=== PATIENT | male | born 1940 | race Caucasian/White ===

== ENCOUNTER 2019-05-25 18:33 | Emergency (ER) | payer OTHER ==
[~2019-05-25] VITALS: Ht 180.3 cm; Wt 102.3 kg
[2019-05-25] MEDS ORDERED: SODIUM CHLORIDE 0.9% 1L BAG IV* STA (18:38)
[2019-05-25 18:43] VITALS: Ht 180.3 cm; Wt 102.3 kg
--- NOTE | 2019-05-25 18:54 | ERD ---
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 Patient states he urinates about 3 times a day, denies chest pain or shortness of breath, no rash, no recent travel or antibiotic use, no vomiting or diarrhea, no complaints of abdominal pain. ROS All systems reviewed and are negative except as per history of present illness. Allergies Allergies: Coded Allergies: furosemide (Verified Allergy, Unknown, 05/25/19) PMhx/Soc History of end-stage kidney disease hemodialysis dependent M, W, F, hypertension, diabetes mellitus, mild dementia, bedbound state, pacemaker Physical Exam Vitals Vital Signs Date Temp Pulse Resp B/P (MAP) Pulse Ox O2 O2 Flow FiO2 Time Delivery Rate 05/25/19 97.7 76 18 119/55 97 Room Air 20:24 (76) 05/25/19 101.6 18:50 05/25/19 101.7 87 17 124/73 100 18:43 (90) Per nurse's records Physical Exam Const: Elderly, chronically debilitated man, appears dehydrated, febrile HEENT: Dry mucous membranes, pink conjunctive a, no cervical spine tenderness or deformity Resp: Poor breath sounds bilaterally, crackles at the bases, no wheezing or stridor Cardio: Regular rate and rhythm, no murmurs Abd: Soft, non tender, non distended. Normal bowel sounds Skin: No petechiae or rashes, skin is intact over exposed areas, no lacerations or hematomas noted Ext: No cyanosis, or edema, calves symmetrical, distal pulses equal bilateral Neur: Awake and alert x2, able to answer questions and follow commands, no focal deficits or facial asymmetry although patient has bilateral lower extremity paresis Result Diagram: 05/25/19 1846 05/25/19 1846 Results 24 hrs Laboratory Tests Test 05/25/19 18:46 05/25/19 18:47 White Blood Count 9.1 10^3/ul Red Blood Count 3.98 10^6/ul Hemoglobin 12.4 g/dl Hematocrit 38.8 % Mean Corpuscular Volume 97.5 fl Mean Corpuscular Hemoglobin 31.2 pg Mean Corpuscular Hemoglobin Concent 32.0 g/dl Red Cell Distribution Width 15.0 % Platelet Count 194 10^3/UL Mean Platelet Volume 10.0 fl Immature Granulocytes % 1.100 % Neutrophils % 89.0 % Lymphocytes % 2.2 % Monocytes % 6.5 % Eosinophils % 1.0 % Basophils % 0.2 % Nucleated Red Blood Cells % 0.0 /100WBC Immature Granulocytes # 0.100 10^3/ul Neutrophils # 8.1 10^3/ul Lymphocytes # 0.2 10^3/ul Monocytes # 0.6 10^3/ul Eosinophils # 0.1 10^3/ul Basophils # 0.0 10^3/ul Nucleated Red Blood Cells # 0.0 10^3/ul Prothrombin Time 14.2 Sec Prothrombin Time Ratio 1.1 INR International Normalized Ratio 1.09 Activated Partial Thromboplast Time 32.7 Sec Sodium Level 137 mmol/L Potassium Level 4.4 mmol/L Chloride Level 92 mmol/L Carbon Dioxide Level 35 mmol/L Anion Gap 10 Blood Urea Nitrogen 53 mg/dl Creatinine 4.13 mg/dl Est Glomerular Filtrat Rate mL/min mL/min Glucose Level 168 mg/dl Calcium Level 9.0 mg/dl Total Bilirubin 0.6 mg/dl Direct Bilirubin 0.00 mg/dl Indirect Bilirubin 0.6 mg/dl Aspartate Amino Transf (AST/SGOT) 23 IU/L Alanine Aminotransferase (ALT/SGPT) 20 IU/L Alkaline Phosphatase 106 IU/L Troponin I 0.036 ng/ml Total Protein 6.8 g/dl Albumin 3.5 g/dl Globulin 3.30 g/dl Albumin/Globulin Ratio 1.06 Lipase 62 U/L POC Venous Lactate 2.4 mmol/L Current Medications Medications Dose Sig/Kori Start Time Status Last (Trade) Ordered Route PRN Stop Time Admin Dose Reason Admin Sodium 1,000 ml BOLUS OVER 2 05/25/19 DC 05/25/19 Chloride HOURS STAT 18:38 18:51 (NS) IV* 05/25/19 18:42 Cefepime HCl 50 ml @ ONCE ONCE 05/25/19 DC 05/25/19 100 mls/hr IVPB 19:00 18:51 05/25/19 19:29 Ibuprofen 600 mg ONCE ONCE 05/25/19 DC 05/25/19 (Motrin) PO 19:00 18:50 05/25/19 19:01 Procedures/MDM IV line was established patient was placed on monitoring tech rhythm strip revealed a sinus rhythm at about 80 bpm with upright P and T waves. Patient was febrile, blood and urine cultures ordered results are pending I will follow-up. EKG performed, read by me revealed a ventricularly paced rhythm at 86 bpm, left axis deviation, no evidence of ST elevation or depression 1 view chest x-ray performed, read by me there is atelectatic changes bilaterally, cardiomegaly, no acute infiltrates or pneumothorax noted I suspect sepsis given the patient's fever and initial lactic acid is 2.6 although patient will not receive full 30 cc/kg bolus because he is on hemodialysis, I administered 1 L normal saline IV, ibuprofen 600 mg p.o. for fever, and cefepime 1 g IV CBC was unremarkable, electrolytes revealed end-stage kidney disease, liver function tests unremarkable, troponin negative, urinalysis has been ordered results are pending I will follow-up. Patient's infectious symptoms have not stabilized and the patient is at risk of rapid decompensation. The patient will be admitted for careful hydration, a ntibiotic therapy, and infectious source control. SEVERE SEPSIS CRITERIA: Infectious source: Nonspecific sepsis End organ damage indicated by: None SEPSIS MANAGEMENT Time of recognition of sepsis: Upon arrival. Time of recognition of severe sepsis: No severe sepsis at this time. Time of recognition of septic shock: No septic shock at this time. 3 HOUR BUNDLE Blood cultures x 2 before broad-spectrum antibiotics: Yes 30 ml/kg NS bolus not completed Initial lactate 2.6 Repeat lactate pending SEPTIC SHOCK ASSESSMENT: No lactic acid > 4.0 No persistent hypotension (SBP < 90 or 40 mmHg drop, MAP < 65) despite 30 mL/kg IV fluid bolus VOLUME REASSESSMENT FOR SEPTIC SHOCK: Reevaluation Time: 1999 Temp 99 F, BP 120/90, heart rate 80 bpm, respiratory rate 20 breaths/min, oxygen saturation 100% Heart regular rate & rhythm Lungs crackles Skin warm & dry Cap Refill less than 2 seconds Peripheral pulses radially present PERSISTENT HYPOTENSION TREATMENT: Comfort care no Central line not Required Vasopressor started not required I considered further perfusion assessment with CVP measurement, SCVO2, bedside ultrasound volume assessment, passive leg raise, trial of further fluid bolus. And proceeded with 30 ml/kg fluid bolus of NSS, broad spectrum antibiotics, and admission. CRITICAL CARE: Critical care time 35 minutes, this was time separate from other billable procedures. Emergent fluid management while maintaining close respiratory support. Provision of immediate and broad-spectrum antibiotic therapy. Simultaneous assessment for possible sources in order to direct targeted therapy. Consideration for invasive and chemical support to prevent cardiopulmonary collapse. Critical care time is independent of procedures performed. Patient was accepted by his [facility] physician, Chunky authorization #[id number] Departure Diagnosis: Primary Impression: Sepsis Sepsis type: sepsis due to unspecified organism Sepsis acute organ dysfunction status: unspecified Qualified Codes: A41.9 - Sepsis, unspecified organism Additional Impression: End stage kidney disease Condition: PABLO Chapa MD May 25, 2019 18:54
[2019-05-25] MEDS ORDERED: CEFEPIME 1GM/50 ML (PMX) 50 ML IVPB ONE (19:00)
[2019-05-25] MEDS ORDERED: IBUPROFEN 600 MG TAB PO ONE (19:00)
[2019-05-25 21:13] VITALS: BP 101/47; PULSE 70; RESP 14
== END 2019-05-25 21:30 | disposition short-term general hospital (02) ==
LOC: E/R 18:33
DX: A41.9 Sepsis, unspecified organism (principal); I12.0 Hypertensive chronic kidney disease with stage 5 chronic kidney disease or end stage renal disease; N18.6 End stage renal disease; E11.22 Type 2 diabetes mellitus with diabetic chronic kidney disease; Z99.2 Dependence on renal dialysis
CPT/HCPCS: 36415; 71045; 80053; 83605; 83690; 84484; 85025; 85610; 85730; 87040; 93005; 96374; 99285; J0692; J7030; P9612